=== PATIENT | female | born 1995 | race Caucasian/White ===

== ENCOUNTER 2025-05-10 15:14 | Outpatient (REF) | payer OTHER, SELFPAY ==
[2025-05-10 18:50] LABS: Cholesterol 208 mg/dL (<200); HDL Cholesterol 38 mg/dL (>40); Triglycerides 83 mg/dL (<150)
[2025-05-10 19:23] LABS: Thyroid Stimulating Hormone 0.89 uIU/mL (0.32-4.0)
[2025-05-10 19:37] LABS: Reflex LDLD? No
== END 2025-05-10 15:15 | disposition home or self-care (01) ==
LOC: HO.LAB 15:14
PROVIDERS: PCP Family Medicine; Visit Provider Internal Medicine Endocrinology, Diabetes & Metabolism
DX: E55.9 Vitamin D deficiency, unspecified (principal); E06.3 Autoimmune thyroiditis; E66.812 Obesity, class 2; E28.2 Polycystic ovarian syndrome; R09.81 Nasal congestion; Z13.29 Encounter for screening for other suspected endocrine disorder; Z76.89 Persons encountering health services in other specified circumstances; Z13.6 Encounter for screening for cardiovascular disorders
CPT/HCPCS: 36415; 80061; 82306; 84443; 84702